=== PATIENT | male | born 1985 | race Caucasian/White ===

== ENCOUNTER 2017-09-17 20:10 | Emergency (ER) | payer SELFPAY ==
[2017-09-17 21:34] LABS: Basophils # (Auto) 0.1 K/mm3 (0.0-0.1); Basophils % (Auto) 0.7 % (0.0-1.8); Eosinophils # (Auto) 0.2 K/mm3 (0.0-0.4); Hematocrit 47.8 % (35.5-45.6); Hemoglobin 16.4 gm/dl (11.8-15.2); Lymphocytes # (Auto) 2.6 K/mm3 (1.2-5.4); Lymphocytes % (Auto) 22.9 % (13.4-35.0); Mean Corpuscular HGB Conc 34 % (32-34); Mean Corpuscular Hemoglobin 30 pg (28-32); Mean Corpuscular Volume 87 fl (84-94); Monocytes # (Auto) 1.2 K/mm3 (0.0-0.8); Monocytes % (Auto) 10.3 % (0.0-7.3); Platelet Count 145 K/mm3 (140-440); Red Blood Count 5.52 M/mm3 (3.65-5.03); Red Cell Distribution Width 13.3 % (13.2-15.2)
[2017-09-17 21:49] LABS: Alanine Aminotransferase 98 units/L (7-56); Albumin 4.5 g/dL (3.9-5); BUN/Creatinine Ratio 10; Blood Urea Nitrogen 9 mg/dL (9-20); Calcium 9.8 mg/dL (8.4-10.2); Hemolysis Index 5
[2017-09-17 22:55] LABS: Bilirubin,Urine NEG (Negative); Blood,Urine MOD (Negative); Color,Urine Straw (Yellow); Mucus,Urine FEW /HPF; Protein,Urine <15 mg/dL mg/dL (Negative); Urobilinogen,Urine < 2.0 mg/dL (<2.0)
[2017-09-18] MEDS ORDERED: APRESOLINE IV ONE (02:01)
--- NOTE | 2017-09-18 02:04 | Emergency Department Report ---
ED Abdominal Pain HPI - General Chief Complaint: Abdominal Pain Stated Complaint: ABD PAIN Time Seen by Provider: 09/18/17 01:56 Source: family Mode of arrival: Ambulatory Limitations: Language Barrier - History of Present Illness Initial Comments: Patient is 31 years old male, presented with 3 day history of right flank pain and right lower quadrant pain. Patient stated that the pain is on and off and is sharp in nature. At this moment he stated that his pain level is 0. Patient denied any hematochezia or dysuria. No fever no nausea or vomiting and no diarrhea. MD Complaint: abdominal pain, flank pain -: days(s) Location: RLQ, R flank Radiation: none Severity scale (0 -10): 0 Associated Symptoms: denies other symptoms - Related Data Allergies Allergy/AdvReac Type Severity Reaction Status Date / Time No Known Allergies Allergy Unverified 09/17/17 21:13 ED Review of Systems ROS: Stated complaint: ABD PAIN Other details as noted in HPI Comment: All other systems reviewed and negative Respiratory: denies: cough, orthopnea, shortness of breath, SOB with exertion Gastrointestinal: abdominal pain. denies: nausea, vomiting, diarrhea, constipation, hematemesis Genitourinary: denies: urgency, dysuria, frequency, hematuria, discharge, testicular pain, testicular mass Musculoskeletal: back pain Neurological: denies: headache, weakness, numbness, paresthesias ED Past Medical Hx - Past Medical History Previous Medical History?: No - Surgical History Past Surgical History?: No - Social History Smoking Status: Never Smoker Substance Use Type: Alcohol ED Physical Exam - General Limitations: Language Barrier General appearance: alert, in no apparent distress - Head Head exam: Present: atraumatic, normocephalic - Eye Eye exam: Present: normal appearance, PERRL - ENT ENT exam: Present: normal exam, normal orophraynx, mucous membranes moist - Neck Neck exam: Present: normal inspection, full ROM. Absent: tenderness, meningismus, lymphadenopathy, thyromegaly - Respiratory Respiratory exam: Present: normal lung sounds bilaterally. Absent: respiratory distress, wheezes, rales, rhonchi, stridor, chest wall tenderness, accessory muscle use, decreased breath sounds, prolonged expiratory - Cardiovascular Cardiovascular Exam: Present: regular rate, normal rhythm, normal heart sounds - GI/Abdominal GI/Abdominal exam: Present: soft, normal bowel sounds. Absent: distended, tenderness, guarding, rebound, rigid, diminished bowel sounds, organomegaly, mass, bruit, pulsatile mass, hernia - Extremities Exam Extremities exam: Present: normal inspection, full ROM, normal capillary refill - Back Exam Back exam: Present: normal inspection, full ROM, CVA tenderness (R). Absent: tenderness, muscle spasm, paraspinal tenderness, vertebral tenderness - Neurological Exam Neurological exam: Present: alert, oriented X3, CN II-XII intact, normal gait - Skin Skin exam: Present: warm, intact ED Course Vital Signs 09/17/17 09/17/17 09/18/17 21:13 23:50 00:00 Temperature 97.5 F L 98.1 F Pulse Rate 79 82 Respiratory 18 16 16 Rate Blood Pressure 174/93 Blood Pressure 170/113 [Right] O2 Sat by Pulse 97 98 98 Oximetry 09/18/17 09/18/17 09/18/17 01:46 02:00 02:15 Temperature Pulse Rate 78 Respiratory Rate Blood Pressure 192/123 192/123 Blood Pressure [Right] O2 Sat by Pulse 100 99 Oximetry 09/18/17 09/18/17 09/18/17 02:16 02:30 02:45 Temperature Pulse Rate Respiratory Rate Blood Pressure 181/117 147/97 146/107 Blood Pressure [Right] O2 Sat by Pulse 99 99 98 Oximetry 09/18/17 03:40 Temperature Pulse Rate Respiratory Rate Blood Pressure 151/96 Blood Pressure [Right] O2 Sat by Pulse 98 Oximetry ED Medical Decision Making - Lab Data Result diagrams: 09/17/17 21:20 09/17/17 21:20 - Radiology Data Radiology results: report reviewed Referring Physician: FIDELINA PARHAM Patient Name: MILTON AGUSTIN Date of : 1985 Sex: Male Report Date: 2017-09-18 Report Status: Finalized Findings [address] [address] Cat Scan Report Signed Patient: MILTON AGUSTIN MR#: [id number] : 1985 Acct:[id number] Age/Sex: 31 / M ADM Date: 09/17/17 Loc: ED Attending Dr: Ordering Physician: FIDELINA PARHAM Date of Service: 09/18/17 Procedure(s): CT abdomen pelvis wo con Accession Number(s): [id number] cc: FIDELINA PARHAM FINAL REPORT EXAM: CT ABDOMEN PELVIS WO CON HISTORY: abdominal pain rt flank TECHNIQUE: Routine axial imaging was obtained of the abdomen pelvis without oral or IV contrast sagittal and coronal reconstructions were reviewed. FINDINGS: The lung bases are clear. Pleural fluid is not seen. The liver is normal size and reveals diminished attenuation compatible with hepatic steatosis. The gallbladder, pancreas, spleen, and adrenal glands appear normal. There is moderate right-sided hydronephrosis secondary to a partially obstructing 7 mm stone just below the right renal pelvis. There an additional 3 millimeter nonobstructing stone centrally in the right kidney. The left kidney is unremarkable. The bowel loops are normal in caliber and course. The appendix is not enlarged. There is no evidence of free fluid or adenopathy. The prostate gland and bladder appear normal. The skeletal structures reveal pars defects bilaterally at the L5-S1 level. IMPRESSION: Moderate right-sided hydronephrosis secondary to a partially obstructing 7 mm stone just below the right renal pelvis. Additional nonobstructing stone in the right kidney. No evidence of appendicitis. Hepatic steatosis. Transcribed By: RB Dictated By: NONA CLEMENS MD Electronically Authenticated By: NONA CLEMENS MD Signed Date/Time: 09/18/17339 DD/ 9 TD/TT: 09/18/17339 Critical care attestation.: If time is entered above; I have spent that time in minutes in the direct care of this critically ill patient, excluding procedure time. ED Disposition Clinical Impression: Right flank pain, Right kidney stone, Malignant hypertension Disposition: DC- TO HOME OR SELFCARE Is pt being admited?: No Condition: Stable Instructions: Hypertension (ED), Kidney Stones (ED) Referrals: ALEXI ROE MD [Staff Physician] - 3-5 Days
--- NOTE | 2017-09-18 03:45 | Cat Scan Report ---
FINAL REPORT EXAM: CT ABDOMEN PELVIS WO CON HISTORY: abdominal pain rt flank TECHNIQUE: Routine axial imaging was obtained of the abdomen pelvis without oral or IV contrast sagittal and coronal reconstructions were reviewed. FINDINGS: The lung bases are clear. Pleural fluid is not seen. The liver is normal size and reveals diminished attenuation compatible with hepatic steatosis. The gallbladder, pancreas, spleen, and adrenal glands appear normal. There is moderate right-sided hydronephrosis secondary to a partially obstructing 7 mm stone just below the right renal pelvis. There an additional 3 millimeter nonobstructing stone centrally in the right kidney. The left kidney is unremarkable. The bowel loops are normal in caliber and course. The appendix is not enlarged. There is no evidence of free fluid or adenopathy. The prostate gland and bladder appear normal. The skeletal structures reveal pars defects bilaterally at the L5-S1 level. IMPRESSION: Moderate right-sided hydronephrosis secondary to a partially obstructing 7 mm stone just below the right renal pelvis. Additional nonobstructing stone in the right kidney. No evidence of appendicitis. Hepatic steatosis.
[2017-09-18 03:47] VITALS: BP 151/96
== END 2017-09-18 06:15 | disposition home or self-care (01) ==
LOC: ED 20:10
DX: N20.0 Calculus of kidney (principal); R10.30 Lower abdominal pain, unspecified; I10 Essential (primary) hypertension
CPT/HCPCS: 36415; 74176; 80053; 81001; 85025; 96374; 99284; J0360